=== PATIENT | female | born 1975 | race Caucasian/White ===

== ENCOUNTER 2020-05-11 04:32 | Emergency (ER) | payer SELFPAY ==
[2020-05-11 04:53] LABS: ABSOLUTE BASOPHILS # (AUTO) 0.1 10^3/uL (0.0-0.2); ABSOLUTE EOSINOPHILS # (AUTO) 0.2 10^3/uL (0.0-0.6); ABSOLUTE LYMPHOCYTES (AUTO) 2.4 10^3/uL (0.5-4.7); ABSOLUTE MONOCYTES (AUTO) 0.9 10^3/uL (0.1-1.4); ABSOLUTE NEUT (AUTO) 13.9 10^3/uL (1.7-8.2); BASOPHILS % (AUTO) 0.8 % (0-2); EOSINOPHILS % (AUTO) 1.3 % (0-6); HEMATOCRIT 42.6 % (36.0-47.0); HEMOGLOBIN 14.2 g/dL (12.0-15.5); LYMPHOCYTES % (AUTO) 13.9 % (13-45); MEAN CORPUSCULAR HEMOGLOBIN 28.8 pg (27.0-33.4); MEAN CORPUSCULAR HGB CONC 33.3 g/dL (32.0-36.0); MEAN CORPUSCULAR VOLUME 87 fl (80-97); MONOCYTES % (AUTO) 4.9 % (3-13); PLATELET COUNT 333 10^3/uL (150-450); RED BLOOD COUNT 4.92 10^6/uL (3.72-5.28); SEGMENTED NEUTROPHILS % (AUTO) 79.1 % (42-78); TOTAL CELLS COUNTED % (AUTO) 100 %; WHITE BLOOD COUNT 17.6 10^3/uL (4.0-10.5)
[2020-05-11 05:06] LABS: ALBUMIN 4.2 g/dL (3.5-5.0); ALKALINE PHOSPHATASE 77 U/L (38-126); ANION GAP 7 (5-19); ASPARTATE AMINO TRANSFERASE 22 U/L (14-36); BILIRUBIN,DIRECT 0.3 mg/dL (0.0-0.4); BILIRUBIN,TOTAL 0.6 mg/dL (0.2-1.3); BLOOD UREA NITROGEN 15 mg/dL (7-20); CALCIUM 9.8 mg/dL (8.4-10.2); CARBON DIOXIDE 27 mmol/L (22-30); CHLORIDE 106 mmol/L (98-107); GLUCOSE 146 mg/dL (75-110); POTASSIUM 4.5 mmol/L (3.6-5.0); TOTAL PROTEIN 6.9 g/dL (6.3-8.2)
--- NOTE | 2020-05-11 05:15 | ER Document Report ---
ED GI/ - General Chief Complaint: Flank Pain Stated Complaint: RIGHT FLANK PAIN Time Seen by Provider: 05/11/20 04:38 Notes: Patient is a 44-year-old female that comes to the emergency department for chief complaint of sudden onset severe right flank pain that radiates to the right lower abdomen. Symptoms started just prior to arrival. Patient states she vomited with the pain. Patient denies injury, she denies history of kidney stones, she denies dysuria, hematuria, fever, or any other locations of pain. She denies any surgeries or daily medications. She came by ambulance, received 30 mg of Toradol IV and Zofran IV. She denies any current symptoms, states she feels a lot better. - Related Data Allergies/Adverse Reactions: morphine Adverse Reaction (Intermediate, Verified 05/11/20 04:34) VOMITING Past Medical History - General Information source: Patient - Social History Smoking Status: Never Smoker Frequency of alcohol use: None Drug Abuse: None Lives with: Family Family History: Reviewed & Not Pertinent Surgical Hx: Negative Review of Systems - Review of Systems Constitutional: No symptoms reported EENT: No symptoms reported Cardiovascular: No symptoms reported Respiratory: No symptoms reported Gastrointestinal: See HPI Genitourinary: See HPI Female Genitourinary: No symptoms reported Musculoskeletal: No symptoms reported Skin: No symptoms reported Hematologic/Lymphatic: No symptoms reported Neurological/Psychological: No symptoms reported Physical Exam - Vital signs Vitals: Temp Pulse Resp BP Pulse Ox 97.8 F 64 16 136/80 H 100 05/11/20 04:33 05/11/20 04:33 05/11/20 04:33 05/11/20 04:33 05/11/20 04:33 - Notes Notes: GENERAL: Patient appears tired and slightly disheveled but she is not in severe distress HEAD: Normocephalic, atraumatic. EYES: Pupils equal, round, and reactive to light. Extraocular movements intact. ENT: Oral mucosa moist, tongue midline. Oropharynx unremarkable. Airway patent. NECK: Full range of motion. Supple. Trachea midline. No lymphadenopathy. LUNGS: Clear to auscultation bilaterally, no wheezes, rales, or rhonchi. No respiratory distress. Non-tender chest wall. HEART: Regular rate and rhythm. No murmur ABDOMEN: There is mild generalized tenderness in the right lower abdomen, nonspecific, no overt McBurney's tenderness. GENITOURINARY: Deferred EXTREMITIES: Moves all 4 extremities spontaneously. No edema, normal radial and dorsalis pedis pulses bilaterally. No cyanosis. BACK: Mild right-sided CVA tenderness. No cervical, thoracic, lumbar midline tenderness. No saddle anesthesia, normal distal neurovascular exam. Moves all extremities in full range of motion. NEUROLOGICAL: Alert and oriented x3. Normal speech. Cranial nerves II through XII grossly intact. Strength 5/5 in all extremities. PSYCH: Normal affect, normal mood. SKIN: Patient flushed and has dried sweat on her skin Course - Re-evaluation Re-evalutation: Patient started having a lot of pain again after initial relief with EMS meds. Because she does not have a history of kidney stones and because of her severe pain CAT scan was performed after discussion of options with patient, this shows 1 mm right-sided ureterolithiasis with minimal obstruction. No other concerning findings. CBC, chemistry unremarkable. Urinalysis with some white blood cells and hematuria but also a lot of squamous epithelials. Culture started. Discussed options with patient. She will be placed on prophylactic antibiotics, provided with symptom relief, discussed expectations, urology follow-up, and return precautions. Patient states understanding and agreement. - Vital Signs Vital signs: Temp Pulse Resp BP Pulse Ox 97.8 F 64 12 136/80 H 96 05/11/20 04:33 05/11/20 04:33 05/11/20 06:00 05/11/20 04:33 05/11/20 06:00 - Laboratory Result Diagrams: 05/11/20 04:39 05/11/20 04:39 Laboratory results interpreted by me: 05/11/20 05/11/20 05/11/20 04:39 04:39 05:12 WBC 17.6 H RDW 15.0 H Absolute Neuts (auto) 13.9 H Seg Neutrophils % 79.1 H Glucose 146 H Urine Protein 30 H Urine Ketones TRACE H Urine Blood LARGE H Urine Bilirubin SMALL H Urine Urobilinogen 2.0 H Ur Leukocyte Esterase SMALL H Discharge - Discharge Clinical Impression: Right flank pain, Right lower quadrant abdominal pain Vomiting Qualifiers: Vomiting type: unspecified Vomiting Intractability: non-intractable Nausea presence: with nausea Qualified Code(s): R11.2 - Nausea with vomiting, unspecified Condition: Stable Disposition: HOME, SELF-CARE Additional Instructions: You are passing a 1 mm stone on the right side. You also have an additional 1 mm stone in your kidney on the right side which may pass in the future. Drink plenty of water, take the Percocet for pain if needed, Zofran for nausea if needed, and you can add ibuprofen with this for your symptoms. Take the antibiotic as prescribed to completion. Follow-up with urology referral listed below. Return if you worsen including severe worsening pain, uncontrolled vomiting, fever, or any other concerning symptoms. [facility] [address] [place] [address] [phone] [facility] [address] [place], [place] [id number] Prescriptions: Cephalexin Monohydrate [Keflex 500 mg Capsule] 500 mg PO BID 7 Days #14 capsule Oxycodone HCl/Acetaminophen [Percocet 5-325 mg Tablet] 1 - 2 tab PO TID PRN #15 tab PRN Reason: Ondansetron [Zofran Odt 4 mg Tablet] 1 - 2 tab PO Q4H PRN #15 tab.rapdis PRN Reason: For Nausea/Vomiting Forms: Return to Work
[2020-05-11] MEDS ORDERED: FENTANYL CITRATE INJ/PF 100 MCG/2 ML AMPUL IV ONE (05:18)
[2020-05-11 05:52] LABS: APPEARANCE,URINE CLOUDY; BILIRUBIN,URINE SMALL (NEGATIVE); COLOR,URINE AMBER; GLUCOSE, URINE NEGATIVE (NEGATIVE); KETONES,URINE TRACE mg/dL (NEGATIVE); LEUKOCYTE ESTERASE,URINE SMALL (NEGATIVE); NITRITE,URINE NEGATIVE (NEGATIVE); PROTEIN,URINE 30 mg/dL (NEGATIVE); URINE SPECIFIC GRAVITY 1.026
--- NOTE | 2020-05-11 06:02 | RADIOLOGY REPORT (SQ) ---
CLINICAL HISTORY: vomiting, right flank pain COMPARISON: None. TECHNIQUE: CT ABDOMEN PELVIS WITHOUT IV CONTRAST on 05/11/2020 4:42 AM CDT This exam was performed according to our departmental dose-optimization program, which includes automated exposure control, adjustment of the mA and/or kV according to patient size and/or use of iterative reconstruction technique. FINDINGS: Lower lungs are clear. Abdomen: The liver is normal in appearance. There is no biliary dilatation. Gallbladder is normal in appearance. The pancreas and spleen are normal in appearance. Adrenal glands and left kidney are normal. There is a 1 mm mid pole right renal calculus. There is mild right hydronephrosis. There is a 1 mm right UVJ calculus. Abdominal aorta is normal in course and caliber without aneurysm. There is no free air. There is no retroperitoneal adenopathy. Pelvis: There is no bowel obstruction. Urinary bladder is unremarkable. There is no free fluid. Uterus is normal in size. Appendix is normal. Skeleton: There are no acute osseous findings. No suspicious bony lesions. IMPRESSION: Minimal right nephrolithiasis with a mildly obstructing punctate right UVJ calculus.
[2020-05-11] MEDS ORDERED: OXYCODONE-ACETAMINOPHEN 5-325 MG TABLET PO ONE (06:47)
[2020-05-11 06:55] VITALS: BP 122/67
== END 2020-05-11 07:01 | disposition home or self-care (01) ==
LOC: ER 04:32
DX: R10.31 Right lower quadrant pain (principal); R11.2 Nausea with vomiting, unspecified; Z88.6 Allergy status to analgesic agent; Z87.442 Personal history of urinary calculi
CPT/HCPCS: 99285; 96374; 36415; 83690; 84703; 85025; 80053; 81001; 74176; J3010